=== PATIENT | female | born 1980 | race Caucasian/White ===

== ENCOUNTER 2017-01-01 15:56 | Emergency (ER) | payer BC, MEDICAID ==
[~2017-01-01] VITALS: Ht 157.5 cm; Wt 134.0 kg
[2017-01-01 16:09] VITALS: Ht 157.5 cm; Wt 134.0 kg
[2017-01-01] MEDS ORDERED: BENZ100C70 PO (16:31)
[2017-01-01] MEDS ORDERED: PRED50 PO (16:31)
--- NOTE | 2017-01-01 16:35 | ERD ---
ER Documentation Chief Complaint Date/Time DATE: 01/01/17 TIME: 16:33 Chief Complaint cough x 5 days HPI Patient is an otherwise healthy 36-year-old female who states that she has had a dry cough for the past 2 weeks. She states that during the first part of her illness she had a fever however the fever has not resolved. She has seen her primary care doctor who gave her prescription for albuterol, Z-Dimitris and cough syrup. She states she got a little bit better but she continues to have symptoms including dry cough that is worse at night. She denies nausea vomiting or diarrhea. Chest pain or palpitations or shortness of breath. She states Iraheta' s helps temporarily. ROS All systems reviewed and are negative except as per history of present illness. Medications Home Meds Active Scripts Benzonatate* (Tessalon Perle*) 100 Mg Capsule, 100 MG PO Q8H Y for COUGH for 7 Days, CAP Prov:BRYANT VALENCIA PA-C 01/01/17 Prednisone (Prednisone) 50 Mg Tab, 50 MG PO DAILY, #5 TAB Prov:BRYANT VALENCIA PA-C 01/01/17 Allergies Allergies: Coded Allergies: No Known Drug Allergy (Verified Allergy, Unknown, 09/16/08) FmHx Family History: No diabetes Physical Exam Vitals Vital Signs Date Time Temp Pulse Resp B/P Pulse Ox O2 Delivery O2 Flow Rate FiO2 01/01/17 16:09 98.1 73 20 140/70 99 Physical Exam General: well developed, well nourished, alert, nontoxic, no distress Head: normocephalic, atraumatic Neck: Supple, nontender, no lymphadenopathy, no midline tenderness Ears: no tenderness over mastoids bilaterally, TMs nonerythematous, no exudates in canal Oropharynx: no tonsilar erythema or edema, uvula midline, no exudates, no kissing tonsils, no drooling Respiratory: Clear to auscaultation bilaterally, speaks in full sentences, no use of accesory muscles or labored breathing, no rales, ronchi, or wheezing Cardiovascular: RRR, No murmurs GI: soft, non tender, non distended, negative murphys sign, negative mcburneys point tenderness, no cva tenderness bilaterally, no rebound or guarding Back: no midline tenderness, no step offs or bony abnormalities, sensation to light touch in tact Procedures/MDM Patient presents with cough and congestion for 2 weeks. She has already been treated with antibiotics and continues to have cough. She is well-appearing in no distress vital signs are within normal limits and she is afebrile. Her lungs are clear to auscultation bilaterally and I doubt she has pneumonia. I do not believe she needs further antibiotic treatment however I didn't hear prescription for a short course of prednisone as well as Tessalon Perles. Recommended this patient follow up with her primary care doctor within 48 hours or return to the emergency room for any worsening of symptoms. However this time I do believe there is suitable for outpatient management. I answered all their questions and they agreed with the plan and were discharged home. Departure Diagnosis: Primary Impression: Bronchitis Condition: Stable Patient Instructions: Bronchitis, Antiobiotic Treatment (Adult) Additional Instructions: Call your primary care doctor TOMORROW for an appointment during the next 1-2 days.See the doctor sooner or return here if your condition worsens before your appointment time. BRYANT VALENCIA PA-C Jan 01, 2017 16:35
== END 2017-01-01 16:32 | disposition home or self-care (01) ==
LOC: E/R 15:56
DX: J40 Bronchitis, not specified as acute or chronic (principal)
CPT/HCPCS: 99284

== ENCOUNTER 2017-08-19 08:15 | Emergency (ER) | payer BC ==
[~2017-08-19] VITALS: Ht 149.9 cm; Wt 162.0 kg
[~2017-08-19 08:15] MED LIST: BENZ100C70 PO; PRED50 PO
[2017-08-19 08:18] VITALS: Ht 149.9 cm; Wt 162.0 kg
--- NOTE | 2017-08-19 09:11 | ERD ---
ER Documentation Chief Complaint Chief Complaint bilat feet swelling x 3 months, denies pain HPI 36y/o female patient with morbid obesity, presents to the emergency department c /o bilateral leg edema for approximately 3 months. Denies use of breath, chest pain, palpitations, no fever, chills, N/V/D. Positive history of previous episodes. Treatment attempted: None ROS All systems reviewed and are negative except as per history of present illness. Medications Home Meds Active Scripts Hydrochlorothiazide* (Hydrochlorothiazide*) 25 Mg Tab, 25 MG PO DAILY, #30 TAB 2 Refills Prov:NEAL SIMPSON MD 08/19/17 Benzonatate* (Tessalon Perle*) 100 Mg Capsule, 100 MG PO Q8H Y for COUGH for 7 Days, CAP Prov:BRYANT VALENCIA PA-C 01/01/17 Prednisone (Prednisone) 50 Mg Tab, 50 MG PO DAILY, #5 TAB Prov:BRYANT VALENCIA PA-C 01/01/17 Allergies Allergies: Coded Allergies: No Known Drug Allergy (Verified Allergy, Unknown, 09/16/08) PMhx/Soc Medical and Surgical Hx: pt denies Medical Hx History of Surgery: Yes () Hx Alcohol Use: No Hx Substance Use: No Hx Tobacco Use: No Smoking Status: Never smoker FmHx Denies family history of DM, HTN or CAD Physical Exam Vitals Vital Signs Date Time Temp Pulse Resp B/P Pulse Ox O2 Delivery O2 Flow Rate FiO2 08/19/17 10:48 98 117/72 08/19/17 08:18 99.1 105 18 162/74 99 Physical Exam Const: Alert, oriented in no distress Head: Atraumatic Eyes: Normal Conjunctiva ENT: Normal External Ears, Nose and Mouth. Neck: Full range of motion..~ No meningismus. Resp: Clear to auscultation bilaterally Cardio: Regular rate and rhythm, no murmurs Abd: Soft, non tender, non distended. Normal bowel sounds Skin: No petechiae or rashes Back: No midline or flank tenderness Ext: Bilateral non-pitting lower edema, no signs of infection Neur: Awake and alert Psych: Normal Mood and Affect Results 24 hrs Laboratory Tests Test 08/19/17 09:30 Urine Color YELLOW Urine Clarity SLIGHTLY CLOUDY Urine pH 5.0 Urine Specific [place] 1.016 Urine Ketones NEGATIVEmg/dL Urine Nitrite NEGATIVEmg/dL Urine Bilirubin NEGATIVEmg/dL Urine Urobilinogen 1+mg/dL Urine Leukocyte Esterase NEGATIVELeu/ul Urine Microscopic RBC 1/HPF Urine Microscopic WBC 1/HPF Urine Squamous Epithelial Cells FEW/HPF Urine Mucus MODERATE/HPF Urine Hemoglobin NEGATIVEmg/dL Urine Glucose NEGATIVEmg/dL Urine Total Protein NEGATIVEmg/dl Urine Test NEGATIVE Procedures/MDM 36y/o female patient morbidly obese, presents to the ED c/o bilateral nonpitting lower edema for last 3 months. Vital signs stable except for mild elevation of the blood pressure, Physical exam unremarkable. Differential diagnosis include but not limited to: Venous stasis, fluid retention, lymphangitis, no suspicion for cellulitis, low suspicion for DVT. Physical examination and clinical presentation consistent most likely with hypertension and venous stasis with fluid retention, most likely related to sodium intake. During the ED course the patient remained stable and asymptomatic Clinical impression discussed with patient who agrees with management. The patient is stable to be treated outpatient and will be discharged home with a Rx for hydrochlorothiazide. A recommendation to increase exercise and decrease carbohydrate and sugar intake was given. If symptoms persist, worsen or new symptoms develop, then patient is instructed to follow-up with the primary care provider. If the patient is unable to see the primary care provider, then return to the ED immediately. Departure Diagnosis: Primary Impression: Hypertension Additional Impression: Stasis edema of both lower extremities Condition: Stable Additional Instructions: Muchas marco a por [facility] para marcus servicio. Esperamos que en marcus visita a la hollis de emergencia marcus problema medico haya sido solucionado y que se sienta mucho mejor. Para estar seguros que marcus mejoria sigue en proceso, le pedimos el favor de hacer jeana omar de seguimiento medico con marcus doctor primario en los proximos 2-4 hoover. Lleve con usted estos documentos y las medicinas recetadas. Si tereso sintomas empeoran y no puede jaimee a marcus doctor, por favor regrese a hollis de emergencia. En axel que usted no tenga un mdico de atencin primaria: Llame al mdico o clnica comunitaria de referencia que aparece abajo osito las horas de consultorio para hacer jeana omar para que le vean. CLINICAS: [facility] [phone] [facility] [phone] [address] [facility] [phone] [place] [phone] [place] [address] [phone] [facility] [phone] NEAL GUIDRY MD Aug 19, 2017 09:11
--- NOTE | 2017-08-19 09:11 | ERD ---
ER Documentation Chief Complaint Chief Complaint bilat feet swelling x 3 months, denies pain HPI 36y/o female patient with morbid obesity, presents to the emergency department c /o bilateral leg edema for approximately 3 months. Denies use of breath, chest pain, palpitations, no fever, chills, N/V/D. Positive history of previous episodes. Treatment attempted: None ROS All systems reviewed and are negative except as per history of present illness. Medications Home Meds Active Scripts Hydrochlorothiazide* (Hydrochlorothiazide*) 25 Mg Tab, 25 MG PO DAILY, #30 TAB 2 Refills Prov:NEAL SIMPSON MD 08/19/17 Benzonatate* (Tessalon Perle*) 100 Mg Capsule, 100 MG PO Q8H Y for COUGH for 7 Days, CAP Prov:BRYANT VALENCIA PA-C 01/01/17 Prednisone (Prednisone) 50 Mg Tab, 50 MG PO DAILY, #5 TAB Prov:BRYANT VALENCIA PA-C 01/01/17 Allergies Allergies: Coded Allergies: No Known Drug Allergy (Verified Allergy, Unknown, 09/16/08) PMhx/Soc Medical and Surgical Hx: pt denies Medical Hx History of Surgery: Yes () Hx Alcohol Use: No Hx Substance Use: No Hx Tobacco Use: No Smoking Status: Never smoker FmHx Denies family history of DM, HTN or CAD Physical Exam Vitals Vital Signs Date Time Temp Pulse Resp B/P Pulse Ox O2 Delivery O2 Flow Rate FiO2 08/19/17 10:48 98 117/72 08/19/17 08:18 99.1 105 18 162/74 99 Physical Exam Const: Alert, oriented in no distress Head: Atraumatic Eyes: Normal Conjunctiva ENT: Normal External Ears, Nose and Mouth. Neck: Full range of motion..~ No meningismus. Resp: Clear to auscultation bilaterally Cardio: Regular rate and rhythm, no murmurs Abd: Soft, non tender, non distended. Normal bowel sounds Skin: No petechiae or rashes Back: No midline or flank tenderness Ext: Bilateral non-pitting lower edema, no signs of infection Neur: Awake and alert Psych: Normal Mood and Affect Results 24 hrs Laboratory Tests Test 08/19/17 09:30 Urine Color YELLOW Urine Clarity SLIGHTLY CLOUDY Urine pH 5.0 Urine Specific [place] 1.016 Urine Ketones NEGATIVEmg/dL Urine Nitrite NEGATIVEmg/dL Urine Bilirubin NEGATIVEmg/dL Urine Urobilinogen 1+mg/dL Urine Leukocyte Esterase NEGATIVELeu/ul Urine Microscopic RBC 1/HPF Urine Microscopic WBC 1/HPF Urine Squamous Epithelial Cells FEW/HPF Urine Mucus MODERATE/HPF Urine Hemoglobin NEGATIVEmg/dL Urine Glucose NEGATIVEmg/dL Urine Total Protein NEGATIVEmg/dl Urine Test NEGATIVE Procedures/MDM 36y/o female patient morbidly obese, presents to the ED c/o bilateral nonpitting lower edema for last 3 months. Vital signs stable except for mild elevation of the blood pressure, Physical exam unremarkable. Differential diagnosis include but not limited to: Venous stasis, fluid retention, lymphangitis, no suspicion for cellulitis, low suspicion for DVT. Physical examination and clinical presentation consistent most likely with hypertension and venous stasis with fluid retention, most likely related to sodium intake. During the ED course the patient remained stable and asymptomatic Clinical impression discussed with patient who agrees with management. The patient is stable to be treated outpatient and will be discharged home with a Rx for hydrochlorothiazide. A recommendation to increase exercise and decrease carbohydrate and sugar intake was given. If symptoms persist, worsen or new symptoms develop, then patient is instructed to follow-up with the primary care provider. If the patient is unable to see the primary care provider, then return to the ED immediately. Departure Diagnosis: Primary Impression: Hypertension Additional Impression: Stasis edema of both lower extremities Condition: Stable Additional Instructions: Muchas marco a por [facility] para marcus servicio. Esperamos que en marcus visita a la hollis de emergencia marcus problema medico haya sido solucionado y que se sienta mucho mejor. Para estar seguros que marcus mejoria sigue en proceso, le pedimos el favor de hacer jeana omar de seguimiento medico con marcus doctor primario en los proximos 2-4 hoover. Lleve con usted estos documentos y las medicinas recetadas. Si tereso sintomas empeoran y no puede jaimee a marcus doctor, por favor regrese a hollis de emergencia. En axel que usted no tenga un mdico de atencin primaria: Llame al mdico o clnica comunitaria de referencia que aparece abajo osito las horas de consultorio para hacer jeana omar para que le vean. CLINICAS: [facility] [phone] [address] [facility] [phone] [address] [facility] [phone] [address] [place] [phone] [address] [place] [address] [phone] [facility] [phone] NEAL GUIDRY MD Aug 19, 2017 09:11
--- NOTE | 2017-08-19 09:11 | ERD ---
ER Documentation Chief Complaint Chief Complaint bilat feet swelling x 3 months, denies pain HPI 36y/o female patient with morbid obesity, presents to the emergency department c /o bilateral leg edema for approximately 3 months. Denies use of breath, chest pain, palpitations, no fever, chills, N/V/D. Positive history of previous episodes. Treatment attempted: None ROS All systems reviewed and are negative except as per history of present illness. Medications Home Meds Active Scripts Hydrochlorothiazide* (Hydrochlorothiazide*) 25 Mg Tab, 25 MG PO DAILY, #30 TAB 2 Refills Prov:NEAL SIMPSON MD 08/19/17 Benzonatate* (Tessalon Perle*) 100 Mg Capsule, 100 MG PO Q8H Y for COUGH for 7 Days, CAP Prov:BRYANT VALENCIA PA-C 01/01/17 Prednisone (Prednisone) 50 Mg Tab, 50 MG PO DAILY, #5 TAB Prov:BRYANT VALENCIA PA-C 01/01/17 Allergies Allergies: Coded Allergies: No Known Drug Allergy (Verified Allergy, Unknown, 09/16/08) PMhx/Soc Medical and Surgical Hx: pt denies Medical Hx History of Surgery: Yes () Hx Alcohol Use: No Hx Substance Use: No Hx Tobacco Use: No Smoking Status: Never smoker FmHx Denies family history of DM, HTN or CAD Physical Exam Vitals Vital Signs Date Time Temp Pulse Resp B/P Pulse Ox O2 Delivery O2 Flow Rate FiO2 08/19/17 10:48 98 117/72 08/19/17 08:18 99.1 105 18 162/74 99 Physical Exam Const: Alert, oriented in no distress Head: Atraumatic Eyes: Normal Conjunctiva ENT: Normal External Ears, Nose and Mouth. Neck: Full range of motion..~ No meningismus. Resp: Clear to auscultation bilaterally Cardio: Regular rate and rhythm, no murmurs Abd: Soft, non tender, non distended. Normal bowel sounds Skin: No petechiae or rashes Back: No midline or flank tenderness Ext: Bilateral non-pitting lower edema, no signs of infection Neur: Awake and alert Psych: Normal Mood and Affect Results 24 hrs Laboratory Tests Test 08/19/17 09:30 Urine Color YELLOW Urine Clarity SLIGHTLY CLOUDY Urine pH 5.0 Urine Specific [place] 1.016 Urine Ketones NEGATIVEmg/dL Urine Nitrite NEGATIVEmg/dL Urine Bilirubin NEGATIVEmg/dL Urine Urobilinogen 1+mg/dL Urine Leukocyte Esterase NEGATIVELeu/ul Urine Microscopic RBC 1/HPF Urine Microscopic WBC 1/HPF Urine Squamous Epithelial Cells FEW/HPF Urine Mucus MODERATE/HPF Urine Hemoglobin NEGATIVEmg/dL Urine Glucose NEGATIVEmg/dL Urine Total Protein NEGATIVEmg/dl Urine Test NEGATIVE Procedures/MDM 36y/o female patient morbidly obese, presents to the ED c/o bilateral nonpitting lower edema for last 3 months. Vital signs stable except for mild elevation of the blood pressure, Physical exam unremarkable. Differential diagnosis include but not limited to: Venous stasis, fluid retention, lymphangitis, no suspicion for cellulitis, low suspicion for DVT. Physical examination and clinical presentation consistent most likely with hypertension and venous stasis with fluid retention, most likely related to sodium intake. During the ED course the patient remained stable and asymptomatic Clinical impression discussed with patient who agrees with management. The patient is stable to be treated outpatient and will be discharged home with a Rx for hydrochlorothiazide. A recommendation to increase exercise and decrease carbohydrate and sugar intake was given. If symptoms persist, worsen or new symptoms develop, then patient is instructed to follow-up with the primary care provider. If the patient is unable to see the primary care provider, then return to the ED immediately. Departure Diagnosis: Primary Impression: Hypertension Additional Impression: Stasis edema of both lower extremities Condition: Stable Additional Instructions: Muchas marco a por [facility] para marcus servicio. Esperamos que en marcus visita a la hollis de emergencia marcus problema medico haya sido solucionado y que se sienta mucho mejor. Para estar seguros que marcus mejoria sigue en proceso, le pedimos el favor de hacer jeana omar de seguimiento medico con marcus doctor primario en los proximos 2-4 hoover. Lleve con usted estos documentos y las medicinas recetadas. Si tereso sintomas empeoran y no puede jaimee a marcus doctor, por favor regrese a hollis de emergencia. En axel que usted no tenga un mdico de atencin primaria: Llame al mdico o clnica comunitaria de referencia que aparece abajo osito las horas de consultorio para hacer jeana omar para que le vean. CLINICAS: [facility] [phone] [facility] [phone] [address] [facility] [phone] [address] [place] [phone] [address] [place] [address] [phone] [facility] [phone] NEAL GUIDRY MD Aug 19, 2017 09:11
[2017-08-19] MEDS ORDERED: HYDR25TA6 PO (10:34)
[2017-08-19 10:48] VITALS: BP 117/72; PULSE 98
== END 2017-08-19 10:49 | disposition home or self-care (01) ==
LOC: FTE 08:15
DX: I10 Essential (primary) hypertension (principal); I87.2 Venous insufficiency (chronic) (peripheral)
CPT/HCPCS: 81001; 81003; 84703; 99283